=== PATIENT | female | born 1955 | race Caucasian/White ===

== ENCOUNTER 2017-03-14 18:56 | Emergency (ER) | payer BC, OTHER ==
[~2017-03-14] VITALS: Ht 162.6 cm; Wt 71.0 kg
[~2017-03-14 18:56] MED LIST: ALBU8.5H5 IH; ASPI81TA3 PO; CETI1TAB6 PO; MONT10TA21 PO; RANI150T9 PO; SUCR1TAB56 PO; THYR60TA PO
[2017-03-14 18:58] VITALS: Ht 162.6 cm; Wt 71.0 kg
[2017-03-14] MEDS ORDERED: ONDANSETRON (ODT) 4 MG TAB ODT STA (19:23)
[2017-03-14] MEDS ORDERED: HYDROCODONE/APAP (5/325) TAB PO ONE (19:30)
--- NOTE | 2017-03-14 20:52 | RADRPT ---
PROCEDURE: CT Brain without contrast. CLINICAL INDICATION: HOWELL TECHNIQUE: A multiplanar CT of the brain was performed on a CT scanner utilizing axial imaging fro m the skull base through the vertex without IV contrast. The CTDIvol is 44.63 mGy and the DLP is 72 0.23 mGycm. One or more of the following dose reduction techniques were utilized: Automated exposu re control, adjustment of the mA and/or kV according to patient size, use of iterative reconstructio n technique. COMPARISON: MR brain 05/13/2059 CT brain 05/12/2015 FINDINGS: No evidence of intracranial hemorrhage or abnormal extra-axial fluid collection. The brain parenchyma is normal attenuation morphology with preservation of hidalgo white differentiatio n and age appropriate size of the ventricles and subarachnoid spaces. Fluid level within the left sphenoid sinus compatible with retained secretions or acute inflammatory change. The basal cisterns, posterior fossa contents, brainstem, craniocervical junction, orbits, pituitary axis, paranasal sinuses, mastoid air cells, and calvarium are unremarkable. IMPRESSION: 1. No intracranial hemorrhage or acute intracranial abnormality. RPTAT:AAJJ Physician Bertha Date Time Electronically viewed and signed by Physician Bertha on 03/14/2017 20:52 KAILYN/
--- NOTE | 2017-03-14 20:59 | RADRPT ---
PROCEDURE: CT Sinuses. CLINICAL INDICATION: HOWELL TECHNIQUE: A CT of the sinuses was performed on a multidetector CT scanner utilizing direct licona l images. Sagittal and axial reformatted images were made. The CTDIvol is 23.39 and the DLP is . 330.56 mGycm. One or more of the following dose reduction techniques were utilized: Automated exp osure control, adjustment of the mA and/or kV according to patient size, use of iterative reconstruc tion technique. COMPARISON: CT brain 03/14/2017 FINDINGS: Skull base: The cribriform plate, fovea ethmoidalis, lamina papyracea, anterior cranial fossa and pi tuitary sella are intact and normal in appearance. Normal position of the anterior ethmoid artery eli lcus bilaterally. Maxillary sinuses: 10 x 5 mm round soft tissue density in the right maxillary sinus compatible with mucous retention cy st or polyp. Minimal mucosal thickening in the right maxillary sinus. The left maxillary sinus is clear. The ostiomeatal units are patent bilaterally. Ethmoid air cells: Minimal mucosal thickening in the anterior right ethmoid air cells. The remaining ethmoid air cells are clear. Prominent agger nasi cells Sphenoid sinuses: The sphenoethmoidal recesses appear grossly patent on the reformatted images. Small fluid level wi thin the left sphenoid sinus compatible with retained secretions or acute inflammatory change. Frontal sinuses: Near complete opacification of the frontal sinuses bilaterally with extension into the right fronto ethmoidal recess with partial opacification. The remaining Nasal cavity: Mild rightward deviation of the nasal septum without obstruction. Nasopharynx: The contours of the nasopharynx are normal. Mastoid air cells: Mastoid air cells are clear bilaterally. IMPRESSION: 1. The small fluid level within the left sphenoid sinus compatible with acute inflammatory change or retained secretions. 2. Minimal lobulated mucosal thickening in the right maxillary sinus compatible with mucous retenti on cyst or polyp. 3. Near complete opacification of the frontal sinuses bilaterally with partial opacification of the right sphenoethmoidal recess. RPTAT:AAJJ Physician Bertha Date Time Electronically viewed and signed by Physician Bertha on 03/14/2017 20:59 KAILYN/
--- NOTE | 2017-03-14 21:22 | RADRPT ---
PROCEDURE: XR Chest. CLINICAL INDICATION: Cough. TECHNIQUE: Single frontal view of the chest was obtained COMPARISON: 10/16/2016. FINDINGS: The heart and mediastinum are within normal limits. The lungs are clear. Surgical changes at the right hilum are without significant tire changer interva l, with mild scar at the right diaphragmatic pleura and pulmonary parenchyma. There is no pleural effusion or pneumothorax. IMPRESSION: No acute disease. RPTAT: [facility] Physician Mira Date Time Electronically viewed and signed by Physician Mira on 03/14/2017 21:22 RS/
[2017-03-14] MEDS ORDERED: HYDR-902 PO (21:47)
[2017-03-14] MEDS ORDERED: ONDA4TAB14 PO (21:47)
--- NOTE | 2017-03-14 21:54 | ERD ---
ER Documentation Chief Complaint Date/Time DATE: 03/14/17 TIME: 21:52 Chief Complaint cough x 5 days, sob today, headache x 1 day HPI Patient is a 61-year-old female who presents with headache and cough. She has had a cough for 5 days and headache for 1 day. The headache was gradual in onset and has gotten worse. She has had a history of aneurysm repair and she was concerned about this. She has recently been treated with a 10 day course of antibiotics for sinusitis. She has no fevers. The pain was a 10 out of 10 today in the emergency department. ROS All systems reviewed and are negative except as per history of present illness. Medications Home Meds Active Scripts Ondansetron (Ondansetron Odt) 4 Mg Tab.rapdis, 4 MG PO Q6H Y for NAUSEA AND/OR VOMITING, #30 TAB Prov:GEETHA MRATÍNEZ MD 03/14/17 Hydrocodone/Acetaminophen ([place] 10-325 Tablet) 1 Each Tablet, 1 TAB PO Q6H Y for PAIN, #12 TAB Prov:GEETHA MARTÍNEZ MD 03/14/17 Ranitidine Hcl* (Zantac*) 150 Mg Tablet, 150 MG PO BID Y for EPIGASTRIC PAIN, # 30 TAB Prov:BOO DEVLIN 10/17/16 Sucralfate* (Carafate*) 1 Gm Tab, 1 GM PO QID, #60 TAB Prov:BOO DEVLIN 10/17/16 Reported Medications Montelukast Sodium* (Singulair*) 10 Mg Tablet, 10 MG PO QHS, #30 TAB 10/16/16 Aspirin* (Aspirin* Chew) 81 Mg Tab.chew, 81 MG PO DAILY, TAB.CHEW 10/16/16 Thyroid* ([place] Thyroid*) 60 Mg Tablet, 60 MG PO DAILY, TAB 12/06/14 Albuterol Sulfate* (Albuterol Sulfate* HFA) 8.5 Gm Hfa.aer.ad, 2 PUFF IH Q4H Y for WHEEZING AND SOB, EA 12/06/14 Cetirizine/Pseudoephedrine (Zyrtec-D) 5-120 Mg Tab.er.12h, 1 TAB PO DAILY, TAB 12/06/14 Allergies Allergies: Coded Allergies: ciprofloxacin (Verified Allergy, Mild, RASH SWELLING, 10/16/16) PMhx/Soc History of Surgery: Yes (RIGHT LUNG CYST REMOVAL, brainanuerysm removal 2014) Anesthesia Reaction: No Hx Neurological Disorder: Yes (anuerysm) Hx Respiratory Disorders: Yes (ASTHMA) Hx Cardiac Disorders: Yes Hx Psychiatric Problems: Yes (ANXIETY) Hx Miscellaneous Medical Probl: Yes Hx Alcohol Use: No Hx Substance Use: No Hx Tobacco Use: No Smoking Status: Never smoker FmHx Family History: No diabetes Physical Exam Vitals Vital Signs Date Time Temp Pulse Resp B/P Pulse Ox O2 Delivery O2 Flow Rate FiO2 03/14/17 18:58 96.9 88 20 116/81 99 Physical Exam Const: No acute distress Head: Atraumatic Eyes: Normal Conjunctiva ENT: Normal External Ears, Nose and Mouth. Neck: Full range of motion..~ No meningismus. Resp: Clear to auscultation bilaterally Cardio: Regular rate and rhythm, no murmurs Abd: Soft, non tender, non distended. Normal bowel sounds Skin: No petechiae or rashes Back: No midline or flank tenderness Ext: No cyanosis, or edema Neur: Awake and alert, cranial nerves II through XII are intact, strength is 5 out of 5 in all 4 extremities, gait is normal Psych: Normal Mood and Affect Results 24 hrs Current Medications Medications (Trade) Dose Ordered Sig/Hitesh Route PRN Reason Start Time Stop Time Status Last Admin Dose Admin Acetaminophen/ Hydrocodone Bitart ([place] (5/325)) 1 tab ONCE ONCE PO 03/14/17 19:30 03/14/17 19:31 DC 03/14/17 19:37 Ondansetron HCl (Zofran Odt) 8 mg ONCE STAT ODT 03/14/17 19:23 03/14/17 19:24 DC 03/14/17 19:37 Procedures/MDM CT brain was negative per radiology. CT sinuses show opacification of the sinuses per radiology. Chest x-ray shows no pneumonia per radiology. Patient is a 61-year-old female presents with headache and shortness of breath. Chest x-ray shows no pneumonia or pneumothorax. At this point I doubt pneumonia, pneumothorax, or pulmonary embolism. CT scan shows no intracranial hemorrhage or brain mass. I doubt subarachnoid hemorrhage, intracranial mass, or meningitis. The patient is otherwise well-appearing and smiling. I believe outpatient management is appropriate. The patient is going to follow-up with Dr. Burks from ear nose and throat within the next few days. She can return for any worsening symptoms. She will be given a prescription for [place] and Zofran for symptomatic relief. Departure Diagnosis: Primary Impression: Headache Headache type: unspecified Headache chronicity pattern: acute headache Intractability: not intractable Qualified Code: R51 - Acute nonintractable headache, unspecified headache type Additional Impression: Shortness of breath Condition: Fair Patient Instructions: Self-Care for Headaches Additional Instructions: Call your primary care doctor TOMORROW for an appointment during the next 1-2 days.See the doctor sooner or return here if your condition worsens before your appointment time. GEETHA MARTÍNEZ MD Mar 14, 2017 21:54
[2017-03-14 21:59] VITALS: BP 120/77; RESP 20; TEMP 98
== END 2017-03-14 22:00 | disposition home or self-care (01) ==
LOC: FTE 18:56
DX: R51 Headache (principal); R06.02 Shortness of breath; J45.909 Unspecified asthma, uncomplicated; E03.9 Hypothyroidism, unspecified; Z79.82 Long term (current) use of aspirin
CPT/HCPCS: 70450; 70486; 71010

== ENCOUNTER 2017-07-20 13:34 | Emergency (ER) | payer OTHER ==
[~2017-07-20] VITALS: Ht 167.6 cm; Wt 42.0 kg
[~2017-07-20 13:34] MED LIST changes: +HYDR-902 PO; +ONDA4TAB14 PO
[2017-07-20 13:37] VITALS: Ht 167.6 cm; Wt 42.0 kg
[2017-07-20] MEDS ORDERED: DIPHENHYDRAMINE 25 MG CAP PO ONE (15:30)
[2017-07-20] MEDS ORDERED: predniSONE 20 MG TAB PO ONE (15:30)
[2017-07-20] MEDS ORDERED: FAMOTIDINE 20 MG TAB PO ONE (15:30)
[2017-07-20] MEDS ORDERED: FAMO-96 PO (15:33)
[2017-07-20] MEDS ORDERED: BEN25 PO (15:33)
[2017-07-20] MEDS ORDERED: PRED20TA PO (15:33)
--- NOTE | 2017-07-20 15:42 | ERD ---
ER Documentation Chief Complaint Date/Time DATE: 07/20/17 TIME: 15:41 Chief Complaint Complains of possibe allergic reaction HPI 61 year Old female comes in with generalized itching that started yesterday afternoon. She describes as a burning sensation and tingling, improved with Benadryl which she took one time yesterday. She states that her only allergy that she was Cipro, she has not taken any new medications, no new foods, lotions or creams. She denies any shortness breath, chest pain. ROS All systems reviewed and are negative except as per history of present illness. Medications Home Meds Active Scripts Famotidine* (Pepcid*) 20 Mg Tablet, 20 MG PO BID for 4 Days, TAB Prov:ROXANA RAMON PA-C 07/20/17 Diphenhydramine Hcl* (Benadryl*) 25 Mg Cap, 25 MG PO Q6, #30 CAP Prov:ROXANA RAMON PA-C 07/20/17 Prednisone* (Prednisone*) 20 Mg Tab, 40 MG PO DAILY for 4 Days, TAB Prov:ROXANA RAMON PA-C 07/20/17 Ondansetron (Ondansetron Odt) 4 Mg Tab.rapdis, 4 MG PO Q6H Y for NAUSEA AND/OR VOMITING, #30 TAB Prov:GEETHA MARTÍNEZ MD 03/14/17 Hydrocodone/Acetaminophen ([place] 10-325 Tablet) 1 Each Tablet, 1 TAB PO Q6H Y for PAIN, #12 TAB Prov:GEETHA MARTÍNEZ MD 03/14/17 Ranitidine Hcl* (Zantac*) 150 Mg Tablet, 150 MG PO BID Y for EPIGASTRIC PAIN, # 30 TAB Prov:BOO DEVLIN 10/17/16 Sucralfate* (Carafate*) 1 Gm Tab, 1 GM PO QID, #60 TAB Prov:BOO DEVLIN 10/17/16 Reported Medications Montelukast Sodium* (Singulair*) 10 Mg Tablet, 10 MG PO QHS, #30 TAB 10/16/16 Aspirin* (Aspirin* Chew) 81 Mg Tab.chew, 81 MG PO DAILY, TAB.CHEW 10/16/16 Thyroid* ([place] Thyroid*) 60 Mg Tablet, 60 MG PO DAILY, TAB 12/06/14 Albuterol Sulfate* (Albuterol Sulfate* HFA) 8.5 Gm Hfa.aer.ad, 2 PUFF IH Q4H Y for WHEEZING AND SOB, EA 12/06/14 Cetirizine/Pseudoephedrine (Zyrtec-D) 5-120 Mg Tab.er.12h, 1 TAB PO DAILY, TAB 12/06/14 Allergies Allergies: Coded Allergies: ciprofloxacin (Verified Allergy, Mild, RASH SWELLING, 10/16/16) PMhx/Soc History of Surgery: Yes (RIGHT LUNG CYST REMOVAL, brainanuerysm removal 2014) Anesthesia Reaction: No Hx Neurological Disorder: Yes (anuerysm) Hx Respiratory Disorders: Yes (ASTHMA) Hx Cardiac Disorders: Yes Hx Psychiatric Problems: Yes (ANXIETY) Hx Miscellaneous Medical Probl: Yes Hx Alcohol Use: No Hx Substance Use: No Hx Tobacco Use: No Physical Exam Vitals Vital Signs Date Time Temp Pulse Resp B/P Pulse Ox O2 Delivery O2 Flow Rate FiO2 07/20/17 15:44 97.7 86 16 136/80 100 Room Air 07/20/17 13:37 103 20 150/77 100 Physical Exam General: Well-developed, well-nourished. The patient appears in no acute distress. HEENT: Head is normocephalic, atraumatic. No scleral icterus. Neck: Supple. Nontender. Oropharynx is clear. Lungs: Clear to auscultation. Normal air movement. Heart: Regular rate and rhythm. S1 and S2 are normal. No murmurs, gallops, or rubs. Abdomen: Nondistended. Extremities: No clubbing or cyanosis. Moving extremities x 4. No weakness. Neurologic: Alert and oriented 3. No focal deficits. Normal speech and gait. Skin: Generalized mild erythema that is blanchable, there is no evidence of petechiae, no cellulitis. Results 24 hrs Current Medications Medications (Trade) Dose Ordered Sig/Hitesh Route PRN Reason Start Time Stop Time Status Last Admin Dose Admin Prednisone (Prednisone) 40 mg ONCE ONCE PO 07/20/17 15:30 07/20/17 15:31 DC 07/20/17 15:28 Diphenhydramine HCl (Benadryl) 25 mg ONCE ONCE PO 07/20/17 15:30 07/20/17 15:31 DC 07/20/17 15:29 Famotidine (Pepcid) 20 mg ONCE ONCE PO 07/20/17 15:30 07/20/17 15:31 DC 07/20/17 15:29 Procedures/MDM 61Old female comes in with a generalized allergic reaction is mild.Patient's allergic symptoms have stabilized while they have been evaluated in the department without evidence of persistent systemic reaction. Patient is healthy and capable of treating and responding to rebound reactions. Patient appropriate for outpatient allergy work up and treatment. Departure Diagnosis: Primary Impression: Dermatitis Condition: Good Patient Instructions: Dermatitis, Non-Specific ROXANA RAMON PA-C Jul 20, 2017 15:42
[2017-07-20 15:44] VITALS: BP 136/80; PULSE 86; RESP 16; TEMP 97.7
== END 2017-07-20 15:42 | disposition home or self-care (01) ==
LOC: FTE 13:34
DX: L30.9 Dermatitis, unspecified (principal); J45.909 Unspecified asthma, uncomplicated; Z79.82 Long term (current) use of aspirin
CPT/HCPCS: 99283; J7512

== ENCOUNTER 2018-08-07 01:57 | Observation (INO) | END 2018-08-08 17:40 | disposition home or self-care (01) ==

== ENCOUNTER 2019-01-21 17:14 | Emergency (ER) | payer OTHER ==
[~2019-01-21] VITALS: Ht 167.6 cm; Wt 71.8 kg
[~2019-01-21 17:14] MED LIST changes: +ASPI-903 PO; -ASPI81TA3 PO; +FAMO20TA18 PO; -HYDR-902 PO; +IBUP-1541 PO; -ONDA4TAB14 PO; -RANI150T9 PO; -SUCR1TAB56 PO; +WORK NOTE
[2019-01-21 17:18] VITALS: Ht 167.6 cm; Wt 71.8 kg
--- NOTE | 2019-01-21 19:40 | ERD ---
ER Documentation Chief Complaint Chief Complaint COUGH HPI The patient is a 63-year-old female, presenting to the ER because of cough, congestion for the last couple days. She is taking prednisone, antibiotic and albuterol for bronchitis. She also complains of bloody stool about 2 hrs ago, denies constipation, diarrhea, dysuria. She did have a colonoscopy recently that was unremarkable. He does not smoke nor drink. She complains of chest wall discomfort, worse with coughing Past medical history: Hypothyroidism, asthma Past surgical history: Left carotid aneurysm, hysterectomy ROS All systems reviewed and are negative except as per history of present illness. Medications Home Meds Active Scripts Hydrocortisone Acetate (Anusol-Hc) 25 Mg Supp.rect, 1 SUPP IN BID PRN for HEMORROID PAIN/ITCHING, #12 SUPP.RECT Prov:SVETLANA NEGRETE MD 01/21/19 Guaifenesin-Codeine Phosphate* (Robitussin* AC) 5 Ml Syrup, 10 ML PO Q6H PRN for COUGH, #120 ML Prov:SVETLANA NEGRETE MD 01/21/19 Prednisone* (Prednisone*) 20 Mg Tab, 50 MG PO DAILY for 5 Days, TAB Prov:SVETLANA NEGRETE MD 01/21/19 Azithromycin* (Zithromax*) 250 Mg Tablet, 250 MG PO .YarelisPACK DIRECTED, #6 TAB TAKE 500 MG (2 TABS) THE FIRST DAY THEN 250 MG (1 TAB) DAYS 2-5 Prov:SVETLANA NEGRETE MD 01/21/19 [Work Note] No Conflict Check Please excuse Ms. Yvonne Jones attending work from 08/06/2018 to 08/09/2018 due to her medical condition and hospitalization. Thank you Prov:SHAQUILLE BOWERS NP 08/08/18 Famotidine* (Famotidine*) 20 Mg Tablet, 20 MG PO DAILY for 7 Days, #7 TAB Prov:SHAQUILLE BOWERS NP 08/08/18 Ibuprofen* (Ibuprofen*) 400 Mg Tablet, 400 MG PO TID for 7 Days, #30 TAB Prov:SHAQUILLE BOWERS NP 08/08/18 Reported Medications Montelukast Sodium* (Singulair*) 10 Mg Tablet, 10 MG PO QHS, #30 TAB 10/16/16 Aspirin* (Aspirin* Chew) 81 Mg Tab.chew, 81 MG PO DAILY, TAB.CHEW 10/16/16 Thyroid* ([place] Thyroid*) 60 Mg Tablet, 60 MG PO DAILY, TAB 12/06/14 Albuterol Sulfate* (Albuterol Sulfate* HFA) 8.5 Gm Hfa.aer.ad, 2 PUFF IH Q4H PRN for WHEEZING AND SOB, EA 12/06/14 Cetirizine/Pseudoephedrine (Zyrtec-D) 5-120 Mg Tab.er.12h, 1 TAB PO DAILY, TAB 12/06/14 Allergies Allergies: Coded Allergies: ciprofloxacin (Unverified Allergy, Mild, RASH SWELLING, 08/07/18) PMhx/Soc History of Surgery: Yes (Brain Aneurysm Clipping 2014, R Lung Cyst Removal, Hysterectomy) Anesthesia Reaction: No Hx Neurological Disorder: No Hx Respiratory Disorders: No Hx Cardiac Disorders: No Hx Psychiatric Problems: No Hx Miscellaneous Medical Probl: No Hx Alcohol Use: No Hx Substance Use: No Hx Tobacco Use: No Physical Exam Vitals Vital Signs Date Temp Pulse Resp B/P (MAP) Pulse Ox O2 O2 Flow FiO2 Time Delivery Rate 01/21/19 78 20 98 21 21:06 01/21/19 Nasal 2 20:11 Cannula 01/21/19 98.7 111 16 165/92 99 17:18 (116) Physical Exam Const: No acute distress. Head: Atraumatic. Eyes: Normal Conjunctiva. ENT: Normal External Ears, Nose and Mouth. Neck: Full range of motion. No meningismus. Resp: Bilateral expiratory wheezes Cardio: Regular tachycardic Abd: Soft, non distended, normal bowel sounds, non tender. Skin: No petechiae or rashes. Back: No midline or flank tenderness. Ext: No cyanosis, or edema. Neur: Awake and alert. No focal deficit Psych: Normal Mood and Affect. Rectal: External hemorrhoids, non bleeding Result Diagram: 01/21/19200801/21/192008 Results 24 hrs Laboratory Tests Test 01/21/19 20:09 01/21/19 23:22 01/21/19 23:24 White Blood Count 11.0 10^3/ul Red Blood Count 4.58 10^6/ul Hemoglobin 13.1 g/dl Hematocrit 39.6 % Mean Corpuscular Volume 86.5 fl Mean Corpuscular Hemoglobin 28.6 pg Mean Corpuscular Hemoglobin Concent 33.1 g/dl Red Cell Distribution Width 12.5 % Platelet Count 419 10^3/UL Mean Platelet Volume 9.0 fl Immature Granulocytes % 1.200 % Neutrophils % 77.9 % Lymphocytes % 18.8 % Monocytes % 1.8 % Eosinophils % 0.0 % Basophils % 0.3 % Nucleated Red Blood Cells % 0.0 /100WBC Immature Granulocytes # 0.130 10^3/ul Neutrophils # 8.6 10^3/ul Lymphocytes # 2.1 10^3/ul Monocytes # 0.2 10^3/ul Eosinophils # 0.0 10^3/ul Basophils # 0.0 10^3/ul Nucleated Red Blood Cells # 0.0 10^3/ul Sodium Level 139 mmol/L Potassium Level 4.0 mmol/L Chloride Level 100 mmol/L Carbon Dioxide Level 27 mmol/L Anion Gap 12 Blood Urea Nitrogen 18 mg/dl Creatinine 0.74 mg/dl Est Glomerular Filtrat Rate mL/min > 60 mL/min Glucose Level 157 mg/dl Calcium Level 9.5 mg/dl Troponin I < 0.012 ng/ml Bedside Urine pH (LAB) 7.5 Bedside Urine Protein (LAB) Negative Bedside Urine Glucose (UA) Negative Bedside Urine Ketones (LAB) Negative Bedside Urine Blood Negative Bedside Urine Nitrite (LAB) Negative Bedside Urine Leukocyte Esterase (L Negative POC Beta HCG, Qualitative NEGATIVE Current Medications Medications Dose Sig/Hitesh Start Time Status Last (Trade) Ordered Route PRN Stop Time Admin Dose Reason Admin Sodium 1,000 ml @ Q1H STAT 01/21/19 DC 01/21/19 Chloride 1,000 mls/hr IV 20:31 01/21/19 20:59 21:30 3.75 mg ONCE STAT 01/21/19 DC 01/21/19 Levalbuterol INH 20:31 01/21/19 21:06 (Xopenex 20:36 Neb) Ipratropium 1.5 mg ONCE STAT 01/21/19 DC 01/21/19 [place] INH 20:31 01/21/19 21:06 (Atrovent 20:36 0.02% (Neb)) 125 mg ONCE STAT 01/21/19 DC 01/21/19 Methylprednis IV 20:31 01/21/19 21:01 olone Sodium 20:36 Succinate (Solu-Medrol) Ketorolac 30 mg ONCE STAT 01/21/19 DC 01/21/19 Tromethamine IV 20:31 01/21/19 21:00 (Toradol) 20:36 Procedures/MDM [place] [address] Radiology Main Line: [phone] DIAGNOSTIC IMAGING REPORT Patient: YVONNE JONES : 1955 Age: 63 Sex: F MR #: [id number] DOS: 01/21/191940 Ordering MD: SVETLANA NEGRETE MD Location: E/R Room/Bed: PROCEDURE: XR Chest, 1 View CLINICAL INDICATION: Chest pain. TECHNIQUE: Frontal view of the chest. COMPARISON: XR chest 03/14/2017 FINDINGS: LUNGS: Surgical clips overlie the right hilum. Mild fibrosis right lung base. No pulmonary infiltrates. PLEURAL SPACE: Unremarkable. No pneumothorax. HEART: Unremarkable. No cardiomegaly. MEDIASTINUM: Unremarkable. BONES/JOINTS: Unremarkable. IMPRESSION: 1. No acute abnormality demonstrated. 2. There is no significant interval change from the previous study. RPTAT: [facility] Wendy Burks Physician Date Time Electronically viewed and signed by Wendy Burks Physician Drafter Directional Survey on 01/21/2019 20:40 RmC/ CC: SVETLANA NEGRETE MD [phone] MEDICAL MAKING DECISION: The patient is a 63-year-old female, presenting with acute asthma, was treated with 1 L normal saline, Solu-Medrol 125 mg IV, Xopenex 3.75 mg and Atrovent 1.5 mg continuous nebulizer over one hour for asthma, Toradol 30 mg IV for acute chest wall pain with good response. She is stable for outpatient follow-up The differential diagnoses considered include but are not limited to asthma, COPD, pneumonia, pulmonary embolus, pleural effusion, congestive heart failure. Departure Diagnosis: Primary Impression: Acute asthma Additional Impression: Hemorrhoid Condition: Good Comments The patient's blood pressure was elevated (>120/80) but appears stable without evidence of hypertension emergency or urgency. The patient was counseled about the risks of hypertension and urged to pursue outpatient monitoring and therapy within a week with their primary care physician. She was discharged with Zithromax, Phenergan with codeine, prednisone, Anusol HC Suppository I discussed the findings with the patient. I advised the patient to follow-up with the primary physician in about 2-3 days, sooner if needed and return if any concern. Disclaimer: Inadvertent spelling and grammatical errors are likely due to EHR/d ictation software use and do not reflect on the overall quality of patient care. Also, please note that the electronic time recorded on this note does not necessarily reflect the actual time of the patient encounter. SVETLANA NEGRETE MD Jan 21, 2019 19:40
[2019-01-21] MEDS ORDERED: IPRATROPIUM (NEB) 0.5 MG/2.5 ML AMP INH STA (20:31)
[2019-01-21] MEDS ORDERED: KETOROLAC 30 MG INJ IV STA (20:31)
[2019-01-21] MEDS ORDERED: SOD CHLORIDE 0.9% 1,000 ML IV STA (20:31)
[2019-01-21] MEDS ORDERED: LEVALBUTEROL (NEB) 1.25 MG/0.5 ML AMP INH STA (20:31)
[2019-01-21] MEDS ORDERED: METHYLPREDNISOLONE 125 MG INJ IV STA (20:31)
[2019-01-21] MEDS ORDERED: AZIT250T PO (23:20)
[2019-01-21] MEDS ORDERED: CODE5LIQ2 PO (23:21)
[2019-01-21] MEDS ORDERED: PRED20TA PO (23:21)
[2019-01-21] MEDS ORDERED: HYDR25SU23 PR (23:25)
[2019-01-22 00:13] VITALS: BP 103/74; PULSE 88; RESP 16
== END 2019-01-22 00:15 | disposition home or self-care (01) ==
LOC: E/R 17:14
DX: J45.901 Unspecified asthma with (acute) exacerbation (principal); K64.4 Residual hemorrhoidal skin tags; E03.9 Hypothyroidism, unspecified; R07.89 Other chest pain; Z79.82 Long term (current) use of aspirin
CPT/HCPCS: 36415; 71045; 80048; 81003; 81025; 84484; 85025; 93005; 94644; 96361; 96374; 96375; 99285; J1885; J2930; J7030

== ENCOUNTER 2019-07-01 00:50 | Inpatient (IN) | payer OTHER ==
[~2019-07-01] VITALS: Ht 162.6 cm; Wt 73.8 kg
[~2019-07-01 00:50] MED LIST changes: +AZIT250T PO; +CODE5LIQ2 PO; -FAMO20TA18 PO; +FLUC100T PO; +HYDR25SU23 PR; -IBUP-1541 PO; -MONT10TA21 PO; +PRED20TA PO; +TOPI25TA PO; -WORK NOTE
[2019-07-01] MEDS ORDERED: SOD CHLORIDE 0.9% 500 ML IV STA (01:57)
[2019-07-01] MEDS ORDERED: ONDANSETRON 4 MG INJ IV STA ×2 (01:57→04:02)
[2019-07-01] MEDS ORDERED: morphine 4 MG/ML VIAL IV STA (01:57)
[2019-07-01] MEDS ORDERED: HYDROmorphONE 0.5 MG/0.5 ML SYG IV STA (02:53)
[2019-07-01] MEDS ORDERED: NALOXONE (0.4 MG/ML) INJ ONE (03:14)
[2019-07-01] MEDS ORDERED: ONDANSETRON 4 MG INJ IV PRN ×2 (04:30→07:30)
[2019-07-01] MEDS ORDERED: LORAZEPAM 2 MG INJ IV ONE (04:30)
[2019-07-01] MEDS ORDERED: ACETAMINOPHEN 325 MG TAB PO PRN (04:30)
[2019-07-01] MEDS ORDERED: NACL 0.9% 3 ML SYG IV SCH (07:30)
[2019-07-01] MEDS ORDERED: ALBUTEROL/IPRATROPIUM (NEB) 3 ML AMP HHN PRN (07:30)
[2019-07-01] MEDS ORDERED: LORAZEPAM 2 MG INJ IV PRN (07:30)
[2019-07-01] MEDS: THYROID 60 MG TAB PO SCH (09:00)
[2019-07-01] MEDS: ASPIRIN 81 MG TAB PO SCH (09:00)
[2019-07-01 09:42] VITALS: BP 171/81; PULSE 74; RESP 18
[2019-07-01 10:17] VITALS: Ht 162.6 cm; Wt 73.8 kg
[2019-07-01] MEDS: HEPARIN 5,000 UNIT/1 ML VIAL SC SCH ×2 (10:47→21:40)
[2019-07-01 11:01] VITALS: BP 167/83; PULSE 79; RESP 18
[2019-07-01] MEDS ORDERED: POTASSIUM CHLORIDE (SR) 20 MEQ TAB PO STA (12:26)
[2019-07-01] MEDS: ACETAMINOPHEN 325 MG TAB PO PRN ×2 (13:59→22:30)
[2019-07-01 15:39] VITALS: BP 125/84; PULSE 103; RESP 18
[2019-07-01] MEDS: SUCRALFATE (100 MG/ML) 10ML CUP PO SCH ×2 (16:11→21:32)
[2019-07-01] MEDS: morphine 2 MG INJ IV PRN (16:12)
[2019-07-01] MEDS: PANTOPRAZOLE 40 MG INJ IV SCH (17:16)
[2019-07-01 20:00] VITALS: BP 112/68; PULSE 111; RESP 20
[2019-07-01 23:54] VITALS: BP 141/88; PULSE 106; RESP 20
[2019-07-02] VITALS (14 sets, daily range): BP systolic 100–157; BP diastolic 54–80; PULSE 76–116; RESP 16–24
[2019-07-02] MEDS: PANTOPRAZOLE 40 MG INJ IV SCH ×2 (06:17→18:27)
[2019-07-02] MEDS ORDERED: LORATADINE/PSEUDOEPHED (SR) TAB PO ONE (08:00)
[2019-07-02] MEDS: THYROID 60 MG TAB PO SCH (08:16)
[2019-07-02] MEDS: SUCRALFATE (100 MG/ML) 10ML CUP PO SCH ×5 (08:16→21:29)
[2019-07-02] MEDS: ASPIRIN 81 MG TAB PO SCH (08:16)
[2019-07-02] MEDS ORDERED: ONDANSETRON 4 MG INJ IV PRN (16:30)
[2019-07-02] MEDS ORDERED: PROVENTIL HFA 6.7GM INHALER ONE (16:37)
[2019-07-02] MEDS ORDERED: LIDOCAINE 2% (SDV) 5 ML INJ ONE (16:55)
[2019-07-02] MEDS ORDERED: PROPOFOL 20 ML ONE (16:55)
[2019-07-02] MEDS ORDERED: PHENYLephrine (100 MCG/ML) 10ML SYG ONE (17:38)
[2019-07-02] MEDS: FLUCONAZOLE 100 MG TAB PO SCH (18:27)
[2019-07-03 03:15] VITALS: BP 91/49; PULSE 94; RESP 17
[2019-07-03] MEDS: PANTOPRAZOLE 40 MG INJ IV SCH (06:13)
[2019-07-03 07:56] VITALS: BP 124/68; PULSE 91; RESP 18
[2019-07-03] MEDS: ASPIRIN 81 MG TAB PO SCH (08:48)
[2019-07-03] MEDS: THYROID 60 MG TAB PO SCH (08:48)
[2019-07-03] MEDS: SUCRALFATE (100 MG/ML) 10ML CUP PO SCH ×3 (08:48→16:01)
[2019-07-03] MEDS: FLUCONAZOLE 100 MG TAB PO SCH (08:48)
[2019-07-03] MEDS ORDERED: SUMATRIPTAN 25 MG TAB PO ONE (11:00)
[2019-07-03 11:32] VITALS: BP 112/71; PULSE 107; RESP 18
[2019-07-03] MEDS: morphine 2 MG INJ IV PRN (11:56)
[2019-07-03] MEDS ORDERED: ACET/BUTAL/CAFF TAB PO ONE (14:00)
[2019-07-03] MEDS ORDERED: BISACODYL (EC) 5 MG TAB PO ONE (16:00)
[2019-07-03] MEDS ORDERED: MAGNESIUM HYDROXIDE 30ML CUP PO ONE (16:00)
[2019-07-03 16:05] VITALS: BP 134/81; PULSE 96; RESP 18
[2019-07-03] MEDS ORDERED: TOPIRAMATE 25 MG TAB PO SCH (21:00)
== END 2019-07-03 16:45 | disposition home or self-care (01) | DRG 370 ==
LOC: E/R 00:50 → TEL 04:29
PROVIDERS: ADMIT Internal Medicine; ATTEND Internal Medicine
PROC: 0DB68ZX Excision of Stomach, Via Natural or Artificial Opening Endoscopic, Diagnostic (ICD-10-PCS; 2019-07-02)
PROC: 0DB58ZX Excision of Esophagus, Via Natural or Artificial Opening Endoscopic, Diagnostic (ICD-10-PCS; principal; 2019-07-02 17:30)
DX: B37.81 Candidal esophagitis (principal); I16.0 Hypertensive urgency; R56.9 Unspecified convulsions; E03.9 Hypothyroidism, unspecified; I10 Essential (primary) hypertension; J45.909 Unspecified asthma, uncomplicated; K29.70 Gastritis, unspecified, without bleeding; R51 Headache; Z79.82 Long term (current) use of aspirin; Z79.1 Long term (current) use of non-steroidal anti-inflammatories (NSAID)
CPT/HCPCS: 36415; 70450; 70551; 71045; 74176; 80048; 80053; 80307; 81003; 83036; 83690; 83735; 84100; 84443; 84484; 85025; 86703; 88305; 88313; 92610; 93005; 93880; 94664; 95819; 96374; 96375; 97161; C9113; J1170; J1644; J2060; J2270; J2310; J2370; J2405; J7040